=== PATIENT | female | born 1985 | race Caucasian/White ===

== ENCOUNTER 2020-03-15 07:35 | Inpatient (IN) | payer MEDICAID, OTHER ==
[~2020-03-15] VITALS: Ht 162.6 cm; Wt 60.6 kg
[2020-03-15] MEDS ORDERED: LORazepam 2 MG/ML VIAL IM ONE (10:00)
[2020-03-15] MEDS ORDERED: DiphenhydrAMINE HCL 50 MG/ML VIAL IM ONE (10:00)
[2020-03-15] MEDS ORDERED: HALOPERIDOL LACTATE 5 MG/ML VIAL IM ONE (10:00)
[2020-03-15] MEDS ORDERED: ZOLPIDEM TARTRATE 10 MG TABLET PO PRN (12:15)
[2020-03-15 12:19] LABS: ANION GAP 3 mmol/L (8-16); CALCIUM, TOTAL 9.4 mg/dL (8.8-10.5); CARBON DIOXIDE 32 mmol/L (22-29); CHLORIDE 103 mmol/L (98-107); CREATININE 0.82 mg/dL (0.60-1.30); GLOMERULAR FILTR. RATE CALC > 60 mL/min (>60); GLUCOSE,RANDOM 79 mg/dL (70-110); POTASSIUM 3.5 mmol/L (3.5-5.1); SODIUM SERUM 138 mmol/L (136-145); UREA NITROGEN, BLOOD 6 mg/dL (7-18)
[2020-03-15 12:24] LABS: ALANINE AMINOTRANSFERASE 24 U/L (12-78); ALBUMIN 3.9 g/dL (3.4-5.0); ALKALINE PHOSPHATASE 77 U/L (46-116); ASPARTATE AMINOTRANSFERASE 21 U/L (15-37); BILIRUBIN,TOTAL 0.4 mg/dL (0.1-1.0); HCG,QUANTITATIVE < 1 mIU/mL (0-6)
[2020-03-15 12:29] LABS: BASOPHILS % (AUTO) 0.5 % (0.0-2.0); EOSINOPHILS % (AUTO) 2.6 % (1.0-6.0); HEMATOCRIT 36.9 % (36-46); HEMOGLOBIN 12.4 g/dL (12.0-16.0); LYMPHOCYTES # (AUTO) 2.2 K/uL (1.0-4.8); LYMPHOCYTES % (AUTO) 34.8 % (22.0-44.0); MEAN CORPUSCULAR HEMOGLOBIN 28.3 pg (26.0-34.0); MEAN CORPUSCULAR HGB CONC 33.6 G/dL (31.0-37.0); MEAN CORPUSCULAR VOLUME 84 fL (80-100); MONOCYTES # (AUTO) 0.6 K/uL (0.1-1.0); MONOCYTES % (AUTO) 9.8 % (2.0-9.0); NEUTROPHILS # (AUTO) 3.2 K/uL (1.8-7.7); NEUTROPHILS % (AUTO) 52.3 % (40.0-70.0); PLATELET COUNT (AUTO) 205 K/uL (150-450); RED BLOOD CELL COUNT(AUTO) 4.38 MIL/uL (4.00-5.20); RED CELL DISTRIBUTION WIDTH 13.8 % (11.5-14.5)
[2020-03-15 18:37] VITALS: BP 122/79
[2020-03-16 04:43] VITALS: BP 118/62
[2020-03-16] MEDS ORDERED: CloNIDine HCL 0.1 MG TABLET PO PRN (08:00)
[2020-03-16] MEDS ORDERED: LOPERAMIDE HCL 2 MG CAPSULE PO PRN (08:00)
[2020-03-16] MEDS ORDERED: IBUPROFEN 400 MG TABLET PO PRN (08:00)
[2020-03-16] MEDS ORDERED: ONDANSETRON HCL 4 MG TABLET PO PRN (08:00)
[2020-03-16] MEDS ORDERED: MAG HYDROX/AL HYDROX/SIMETH ES 30 ML SUSPENSION UDCUP PO PRN (08:00)
[2020-03-16] MEDS ORDERED: MAGNESIUM HYDROXIDE SUSPENSION 30 ML UDCUP PO PRN (08:00)
[2020-03-16] MEDS ORDERED: NICOTINE 14 MG/24 HOUR PATCH TD PRN (08:00)
[2020-03-16] MEDS ORDERED: ACETAMINOPHEN 325 MG TABLET PO PRN (08:00)
[2020-03-16] MEDS ORDERED: PETROLATUM,WHITE 28 GM JELLY TP PRN (08:00)
[2020-03-16] MEDS ORDERED: GuaiFENesin/D-METHORPHAN [SUGAR-FREE] 200-20MG/10 ML SYRUP UDCUP PO PRN (08:00)
[2020-03-16] MEDS ORDERED: DOCUSATE SODIUM 100 MG CAPSULE PO PRN (08:00)
[2020-03-16 16:07] VITALS: BP 94/75
[2020-03-16] MEDS: LORazepam 2 MG TABLET PO PRN (16:49)
[2020-03-16] MEDS: HALOPERIDOL 5 MG TABLET PO PRN (16:49)
[2020-03-16] MEDS: OLANZapine 5 MG TABLET PO SCH (20:36)
[2020-03-17 00:27] VITALS: BP 101/71
[2020-03-17 08:00] VITALS: BP 124/80
[2020-03-17] MEDS ORDERED: DiphenhydrAMINE HCL 50 MG/ML VIAL IM ONE (12:15)
[2020-03-17] MEDS ORDERED: LORazepam 2 MG/ML VIAL IM ONE (12:15)
[2020-03-17] MEDS ORDERED: HALOPERIDOL LACTATE 5 MG/ML VIAL IM ONE (12:15)
[2020-03-17] MEDS: HALOPERIDOL 5 MG TABLET PO PRN (12:21)
[2020-03-17] MEDS: LORazepam 2 MG TABLET PO PRN (12:21)
[2020-03-17 16:07] VITALS: BP 105/70
[2020-03-17] MEDS: OLANZapine 5 MG TABLET PO SCH (20:57)
[2020-03-18 00:44] VITALS: BP 102/76
[2020-03-18 08:00] VITALS: BP 116/72
[2020-03-18] MEDS: LORazepam 2 MG TABLET PO PRN (10:01)
[2020-03-18] MEDS: OLANZapine 5 MG TABLET PO SCH (20:21)
[2020-03-19 00:41] VITALS: BP 111/68
[2020-03-19 08:16] VITALS: BP 117/64
[2020-03-19] MEDS: OLANZapine 5 MG TABLET PO SCH ×2 (09:41→20:25)
[2020-03-19] MEDS: LORazepam 2 MG TABLET PO PRN ×2 (10:07→15:57)
[2020-03-19] MEDS: ALBUTEROL SULFATE HFA 90 MCG/PUFF 8 GM INHALER IH PRN (15:57)
[2020-03-19 16:06] VITALS: BP 106/79
[2020-03-19] MEDS: HALOPERIDOL 5 MG TABLET PO PRN (18:01)
[2020-03-20 04:59] VITALS: BP 103/60
[2020-03-20] MEDS: LORazepam 2 MG TABLET PO PRN (08:55)
[2020-03-20] MEDS: OLANZapine 5 MG TABLET PO SCH ×2 (08:55→20:37)
[2020-03-20 16:12] VITALS: BP 116/66
[2020-03-20] MEDS ORDERED: LORazepam 2 MG/ML VIAL ONE (16:51)
[2020-03-20] MEDS ORDERED: HALOPERIDOL LACTATE 5 MG/ML VIAL ONE (16:51)
[2020-03-20] MEDS ORDERED: DiphenhydrAMINE HCL 50 MG/ML VIAL ONE (16:51)
[2020-03-20] MEDS ORDERED: LORazepam 2 MG/ML VIAL IM ONE (17:00)
[2020-03-20] MEDS ORDERED: HALOPERIDOL LACTATE 5 MG/ML VIAL IM ONE (17:00)
[2020-03-20] MEDS ORDERED: DiphenhydrAMINE HCL 50 MG/ML VIAL IM ONE (17:00)
[2020-03-21 03:50] VITALS: BP 110/73
[2020-03-21] MEDS: OLANZapine 5 MG TABLET PO SCH ×2 (09:16→20:22)
[2020-03-21] MEDS: LORazepam 2 MG TABLET PO PRN ×2 (09:16→16:26)
[2020-03-21] MEDS: HALOPERIDOL 5 MG TABLET PO PRN ×2 (09:16→16:26)
[2020-03-21] MEDS: ALBUTEROL SULFATE HFA 90 MCG/PUFF 8 GM INHALER IH PRN (16:27)
[2020-03-22 00:18] VITALS: BP 107/83
[2020-03-22] MEDS: LORazepam 2 MG TABLET PO PRN ×2 (09:39→14:20)
[2020-03-22] MEDS: OLANZapine 5 MG TABLET PO SCH ×2 (09:39→20:43)
[2020-03-22 16:20] VITALS: BP 100/62
[2020-03-23 00:55] VITALS: BP 101/65
[2020-03-23 08:00] VITALS: BP 112/74
[2020-03-23] MEDS ORDERED: FLUTICASONE PROPIONATE 50 MCG/SPRAY 16 GM NASAL SPRAY NASAL SCH (09:00)
[2020-03-23] MEDS ORDERED: OLANZapine 5 MG TABLET PO SCH (09:00)
[2020-03-23] MEDS: LORazepam 2 MG TABLET PO PRN (09:03)
[2020-03-23] MEDS ORDERED: OLANZapine 10 MG TABLET PO SCH (21:00)
[2020-03-23] MEDS ORDERED: OLAN5TAB2 PO (21:12)
[2020-03-24] MEDS ORDERED: LORA-1001 PO (11:21)
[2020-03-24] MEDS ORDERED: OLAN10TA22 PO (11:21)
[2020-03-24] MEDS ORDERED: FLUT15.812 NASAL (11:21)
[2020-03-24] MEDS ORDERED: ZOLP10TA8 PO (11:21)
[2020-03-24] MEDS ORDERED: HALO5TAB23 PO (11:21)
[2020-03-24] MEDS ORDERED: ALBU90AE IH (11:21)
[2020-03-24] MEDS ORDERED: ACET-784 PO (13:31)
== END 2020-03-23 16:30 | disposition short-term general hospital (02) | DRG 885 ==
LOC: EMS 07:40 → B3A 12:06 → UNDOADMIN 16:06 → B3A 16:06
DX: F25.1 Schizoaffective disorder, depressive type (principal); F29 Unspecified psychosis not due to a substance or known physiological condition; G44.209 Tension-type headache, unspecified, not intractable; K21.9 Gastro-esophageal reflux disease without esophagitis; R10.13 Epigastric pain; I95.9 Hypotension, unspecified; R21 Rash and other nonspecific skin eruption; Z59.0 Homelessness
CPT/HCPCS: G0480; J1200; J1630; J2060; J3535

== ENCOUNTER 2020-03-24 13:35 | Inpatient (IN) | payer MEDICAID ==
[~2020-03-24] VITALS: Ht 177.8 cm; Wt 64.0 kg
[~2020-03-24 13:35] MED LIST: ACET-784 PO; ALBU90AE IH; FLUT15.812 NASAL; HALO5TAB23 PO; LORA-1001 PO; OLAN10TA22 PO; OLAN5TAB2 PO; ZOLP10TA8 PO
[2020-03-24] MEDS ORDERED: HALOPERIDOL 5 MG TABLET PO PRN (14:15)
[2020-03-24 17:54] VITALS: BP 125/87
[2020-03-24] MEDS: OLANZapine 10 MG RAPDIS TABLET PO SCH (20:14)
[2020-03-24] MEDS: ZOLPIDEM TARTRATE 10 MG TABLET PO PRN (20:15)
[2020-03-25 03:46] VITALS: BP 120/84
[2020-03-25] MEDS ORDERED: [UNRECOGNIZED DRUG - OTHER] IH PRN (07:30)
[2020-03-25] MEDS ORDERED: CloNIDine HCL 0.1 MG TABLET PO PRN (07:30)
[2020-03-25] MEDS ORDERED: ACETAMINOPHEN 325 MG TABLET PO PRN (07:30)
[2020-03-25] MEDS ORDERED: MAG HYDROX/AL HYDROX/SIMETH ES 30 ML SUSPENSION UDCUP PO PRN (07:30)
[2020-03-25] MEDS ORDERED: DOCUSATE SODIUM 100 MG CAPSULE PO PRN (07:30)
[2020-03-25] MEDS ORDERED: NICOTINE 14 MG/24 HOUR PATCH TD PRN (07:30)
[2020-03-25] MEDS ORDERED: MAGNESIUM HYDROXIDE SUSPENSION 30 ML UDCUP PO PRN (07:30)
[2020-03-25] MEDS ORDERED: ONDANSETRON HCL 4 MG TABLET PO PRN (07:30)
[2020-03-25] MEDS ORDERED: GuaiFENesin/D-METHORPHAN [SUGAR-FREE] 200-20MG/10 ML SYRUP UDCUP PO PRN (07:30)
[2020-03-25] MEDS ORDERED: PETROLATUM,WHITE 28 GM JELLY TP PRN (07:30)
[2020-03-25] MEDS ORDERED: IBUPROFEN 400 MG TABLET PO PRN (07:30)
[2020-03-25] MEDS ORDERED: LOPERAMIDE HCL 2 MG CAPSULE PO PRN (07:30)
[2020-03-25 08:07] VITALS: BP 122/81
[2020-03-25] MEDS: OLANZapine 5 MG TABLET PO SCH (08:16)
[2020-03-25] MEDS: LORazepam 2 MG TABLET PO PRN (10:13)
[2020-03-25] MEDS: FLUTICASONE PROPIONATE 50 MCG/SPRAY 16 GM NASAL SPRAY NASAL SCH ×2 (12:15→16:28)
[2020-03-25 16:06] VITALS: BP 101/62
[2020-03-25] MEDS: OLANZapine 10 MG RAPDIS TABLET PO SCH (20:12)
[2020-03-25] MEDS: ALBUTEROL SULFATE HFA 90 MCG/PUFF 8 GM INHALER IH PRN (20:12)
[2020-03-25] MEDS: ZOLPIDEM TARTRATE 10 MG TABLET PO PRN (20:13)
[2020-03-26 04:24] VITALS: BP 119/85
[2020-03-26 08:19] VITALS: BP 104/72
[2020-03-26] MEDS: LORazepam 2 MG TABLET PO PRN (08:53)
[2020-03-26] MEDS: OLANZapine 5 MG TABLET PO SCH (08:53)
[2020-03-26] MEDS: FLUTICASONE PROPIONATE 50 MCG/SPRAY 16 GM NASAL SPRAY NASAL SCH ×2 (08:54→16:55)
[2020-03-26 16:05] VITALS: BP 100/66
[2020-03-26] MEDS: ALBUTEROL SULFATE HFA 90 MCG/PUFF 8 GM INHALER IH PRN (17:00)
[2020-03-26] MEDS: OLANZapine 10 MG RAPDIS TABLET PO SCH (20:12)
[2020-03-27 00:25] VITALS: BP 116/72
[2020-03-27] MEDS: LORazepam 2 MG TABLET PO PRN (08:42)
[2020-03-27] MEDS: OLANZapine 5 MG TABLET PO SCH (08:42)
[2020-03-27] MEDS: FLUTICASONE PROPIONATE 50 MCG/SPRAY 16 GM NASAL SPRAY NASAL SCH (08:42)
[2020-03-27] MEDS ORDERED: OLAN10TA6 PO (12:35)
== END 2020-03-27 14:32 | disposition home or self-care (01) | DRG 885 ==
LOC: B3A 18:20
DX: F25.1 Schizoaffective disorder, depressive type (principal); J45.909 Unspecified asthma, uncomplicated; F19.10 Other psychoactive substance abuse, uncomplicated; Z20.828 Contact with and (suspected) exposure to other viral communicable diseases
CPT/HCPCS: 87081; J3535; Z7610

== ENCOUNTER 2020-04-07 18:27 | Inpatient (IN) | payer MEDICAID, OTHER ==
[~2020-04-07] VITALS: Ht 180.3 cm; Wt 60.6 kg
[~2020-04-07 18:27] MED LIST changes: -ACET-784 PO; -ALBU90AE IH; -HALO5TAB23 PO; -LORA-1001 PO; -OLAN10TA22 PO; +OLAN10TA6 PO; -ZOLP10TA8 PO
[2020-04-07] MEDS ORDERED: LORazepam 2 MG TABLET PO ONE (19:30)
[2020-04-07] MEDS ORDERED: HALOPERIDOL 5 MG TABLET PO ONE (19:30)
[2020-04-08 01:10] VITALS: BP 104/74
[2020-04-08] MEDS ORDERED: PNEUMOCOCCAL VACCINE POLYVALENT 0.5 ML VIAL [PPSV23] IM ONE (04:30)
[2020-04-08 08:25] VITALS: BP 114/69
[2020-04-08] MEDS ORDERED: GuaiFENesin/D-METHORPHAN [SUGAR-FREE] 200-20MG/10 ML SYRUP UDCUP PO PRN (08:30)
[2020-04-08] MEDS ORDERED: MAGNESIUM HYDROXIDE SUSPENSION 30 ML UDCUP PO PRN (08:30)
[2020-04-08] MEDS ORDERED: CloNIDine HCL 0.1 MG TABLET PO PRN (08:30)
[2020-04-08] MEDS ORDERED: DOCUSATE SODIUM 100 MG CAPSULE PO PRN (08:30)
[2020-04-08] MEDS ORDERED: PETROLATUM,WHITE 28 GM JELLY TP PRN (08:30)
[2020-04-08] MEDS ORDERED: IBUPROFEN 400 MG TABLET PO PRN (08:30)
[2020-04-08] MEDS ORDERED: MAG HYDROX/AL HYDROX/SIMETH ES 30 ML SUSPENSION UDCUP PO PRN (08:30)
[2020-04-08] MEDS ORDERED: ALBUTEROL SULFATE HFA 90 MCG/PUFF 8 GM INHALER IH PRN (08:30)
[2020-04-08] MEDS ORDERED: LOPERAMIDE HCL 2 MG CAPSULE PO PRN (08:30)
[2020-04-08] MEDS ORDERED: ACETAMINOPHEN 325 MG TABLET PO PRN (08:30)
[2020-04-08] MEDS ORDERED: ONDANSETRON HCL 4 MG TABLET PO PRN (08:30)
[2020-04-08] MEDS: BACITRACIN 28 GM OINTMENT TP SCH ×2 (08:55→16:54)
[2020-04-08] MEDS: FLUTICASONE PROPIONATE 50 MCG/SPRAY 16 GM NASAL SPRAY NASAL SCH ×3 (08:56→16:54)
[2020-04-08] MEDS: LORazepam 2 MG TABLET PO PRN ×2 (10:42→16:56)
[2020-04-08] MEDS ORDERED: SUMAtriptan SUCCINATE 25 MG TABLET PO PRN (11:00)
[2020-04-08 16:05] VITALS: BP 118/72
[2020-04-08] MEDS: OLANZapine 10 MG RAPDIS TABLET PO SCH (20:24)
[2020-04-09 03:38] VITALS: BP 108/61
[2020-04-09 08:15] VITALS: BP 102/59
[2020-04-09] MEDS: FLUTICASONE PROPIONATE 50 MCG/SPRAY 16 GM NASAL SPRAY NASAL SCH ×2 (08:58→16:50)
[2020-04-09] MEDS: BACITRACIN 28 GM OINTMENT TP SCH ×2 (08:58→16:50)
[2020-04-09] MEDS: OLANZapine 5 MG TABLET PO SCH (08:59)
[2020-04-09 16:32] VITALS: BP 108/64
[2020-04-09] MEDS: OLANZapine 10 MG RAPDIS TABLET PO SCH (20:17)
[2020-04-10 06:20] VITALS: BP 105/60
[2020-04-10 08:16] VITALS: BP 114/59
[2020-04-10] MEDS: BACITRACIN 28 GM OINTMENT TP SCH ×2 (08:34→19:12)
[2020-04-10] MEDS: FLUTICASONE PROPIONATE 50 MCG/SPRAY 16 GM NASAL SPRAY NASAL SCH ×2 (08:34→19:12)
[2020-04-10] MEDS: OLANZapine 5 MG TABLET PO SCH (08:35)
[2020-04-10] MEDS: LORazepam 2 MG TABLET PO PRN (13:50)
[2020-04-10 16:08] VITALS: BP 118/79
[2020-04-10] MEDS: OLANZapine 10 MG RAPDIS TABLET PO SCH (20:38)
[2020-04-11 00:25] VITALS: BP 114/73
[2020-04-11] MEDS: OLANZapine 5 MG TABLET PO SCH (09:45)
[2020-04-11] MEDS: FLUTICASONE PROPIONATE 50 MCG/SPRAY 16 GM NASAL SPRAY NASAL SCH ×2 (09:45→16:27)
[2020-04-11] MEDS: BACITRACIN 28 GM OINTMENT TP SCH ×2 (09:47→16:27)
[2020-04-11 09:50] VITALS: BP 116/84
[2020-04-11 16:48] VITALS: BP 119/82
[2020-04-11] MEDS: OLANZapine 10 MG RAPDIS TABLET PO SCH (20:30)
[2020-04-11] MEDS: ZOLPIDEM TARTRATE 10 MG TABLET PO PRN (20:30)
[2020-04-11] MEDS ORDERED: DIVALPROEX SODIUM 500 MG DR TABLET PO SCH (21:00)
[2020-04-12 03:57] VITALS: BP 105/62
[2020-04-12] MEDS: FLUTICASONE PROPIONATE 50 MCG/SPRAY 16 GM NASAL SPRAY NASAL SCH ×2 (08:58→16:03)
[2020-04-12] MEDS: BACITRACIN 28 GM OINTMENT TP SCH ×2 (08:58→16:03)
[2020-04-12] MEDS: OLANZapine 5 MG TABLET PO SCH (08:58)
[2020-04-12] MEDS: VALPROIC ACID 250 MG/5 ML SYRUP UDCUP PO SCH ×2 (09:34→20:06)
[2020-04-12] MEDS: OLANZapine 10 MG RAPDIS TABLET PO SCH (20:06)
[2020-04-13 06:23] VITALS: BP 106/58
[2020-04-13 08:25] VITALS: BP 112/73
[2020-04-13] MEDS: BACITRACIN 28 GM OINTMENT TP SCH ×2 (09:24→16:15)
[2020-04-13] MEDS: LORazepam 2 MG TABLET PO PRN ×2 (09:24→16:15)
[2020-04-13] MEDS: FLUTICASONE PROPIONATE 50 MCG/SPRAY 16 GM NASAL SPRAY NASAL SCH ×2 (09:24→16:15)
[2020-04-13] MEDS: OLANZapine 5 MG TABLET PO SCH (09:24)
[2020-04-13] MEDS: VALPROIC ACID 250 MG/5 ML SYRUP UDCUP PO SCH ×2 (09:25→21:27)
[2020-04-13] MEDS: QUEtiapine FUMARATE 100 MG TABLET PO PRN (16:15)
[2020-04-13] MEDS: OLANZapine 10 MG RAPDIS TABLET PO SCH (21:26)
[2020-04-13] MEDS: ZOLPIDEM TARTRATE 10 MG TABLET PO PRN (21:27)
[2020-04-14 01:07] VITALS: BP 105/76
[2020-04-14] MEDS: OLANZapine 5 MG TABLET PO SCH (08:39)
[2020-04-14] MEDS: BACITRACIN 28 GM OINTMENT TP SCH ×2 (08:39→17:18)
[2020-04-14] MEDS: FLUTICASONE PROPIONATE 50 MCG/SPRAY 16 GM NASAL SPRAY NASAL SCH ×2 (08:39→17:18)
[2020-04-14] MEDS: VALPROIC ACID 250 MG/5 ML SYRUP UDCUP PO SCH ×2 (08:40→21:03)
[2020-04-14] MEDS: LORazepam 2 MG TABLET PO PRN ×2 (11:00→20:34)
[2020-04-14 16:17] VITALS: BP 104/64
[2020-04-14] MEDS: OLANZapine 10 MG RAPDIS TABLET PO SCH (21:03)
[2020-04-15 02:17] VITALS: BP 100/69
[2020-04-15] MEDS: FLUTICASONE PROPIONATE 50 MCG/SPRAY 16 GM NASAL SPRAY NASAL SCH ×2 (08:24→16:14)
[2020-04-15] MEDS: VALPROIC ACID 250 MG/5 ML SYRUP UDCUP PO SCH ×2 (08:24→20:05)
[2020-04-15] MEDS: BACITRACIN 28 GM OINTMENT TP SCH ×2 (08:24→16:14)
[2020-04-15] MEDS: OLANZapine 5 MG TABLET PO SCH (08:24)
[2020-04-15] MEDS: LORazepam 2 MG TABLET PO PRN ×2 (08:33→16:14)
[2020-04-15 16:14] VITALS: BP_SYST 105; BP_SYST 110; BP_DIAS 62; BP_DIAS 70
[2020-04-15] MEDS: OLANZapine 10 MG RAPDIS TABLET PO SCH (20:05)
[2020-04-15] MEDS: ZOLPIDEM TARTRATE 10 MG TABLET PO PRN (20:11)
[2020-04-16 01:21] VITALS: BP 101/74
[2020-04-16 08:13] VITALS: BP 102/76
[2020-04-16] MEDS: OLANZapine 5 MG TABLET PO SCH (08:56)
[2020-04-16] MEDS: FLUTICASONE PROPIONATE 50 MCG/SPRAY 16 GM NASAL SPRAY NASAL SCH ×2 (08:56→16:30)
[2020-04-16] MEDS: BACITRACIN 28 GM OINTMENT TP SCH ×2 (08:56→16:29)
[2020-04-16] MEDS: VALPROIC ACID 250 MG/5 ML SYRUP UDCUP PO SCH ×2 (08:56→20:14)
[2020-04-16] MEDS: LORazepam 2 MG TABLET PO PRN ×2 (09:10→18:39)
[2020-04-16 16:08] VITALS: BP 117/66
[2020-04-16] MEDS: OLANZapine 10 MG RAPDIS TABLET PO SCH (20:14)
[2020-04-17 06:26] VITALS: BP 112/74
[2020-04-17 08:13] VITALS: BP 112/69
[2020-04-17] MEDS: VALPROIC ACID 250 MG/5 ML SYRUP UDCUP PO SCH ×2 (08:13→20:01)
[2020-04-17] MEDS: BACITRACIN 28 GM OINTMENT TP SCH ×2 (08:14→16:14)
[2020-04-17] MEDS: OLANZapine 5 MG TABLET PO SCH (08:14)
[2020-04-17] MEDS: FLUTICASONE PROPIONATE 50 MCG/SPRAY 16 GM NASAL SPRAY NASAL SCH ×2 (08:16→16:14)
[2020-04-17] MEDS: HydrOXYzine PAMOATE 25 MG CAPSULE PO PRN (10:00)
[2020-04-17 16:27] VITALS: BP 106/60
[2020-04-17] MEDS: OLANZapine 10 MG RAPDIS TABLET PO SCH (20:01)
[2020-04-18 03:55] VITALS: BP 101/77
[2020-04-18] MEDS: OLANZapine 5 MG TABLET PO SCH (08:12)
[2020-04-18] MEDS: MULTIVITAMINS WITH MINERALS, THERAPEUTIC TABLET PO SCH (08:12)
[2020-04-18] MEDS: HydrOXYzine PAMOATE 25 MG CAPSULE PO PRN ×2 (08:12→16:28)
[2020-04-18] MEDS: VALPROIC ACID 250 MG/5 ML SYRUP UDCUP PO SCH ×2 (08:12→20:10)
[2020-04-18] MEDS: QUEtiapine FUMARATE 100 MG TABLET PO PRN (08:12)
[2020-04-18] MEDS: FLUTICASONE PROPIONATE 50 MCG/SPRAY 16 GM NASAL SPRAY NASAL SCH ×2 (08:13→16:48)
[2020-04-18] MEDS: BACITRACIN 28 GM OINTMENT TP SCH ×2 (08:13→16:48)
[2020-04-18 09:26] VITALS: BP 100/60
[2020-04-18 16:03] VITALS: BP 105/95
[2020-04-18] MEDS: OLANZapine 10 MG RAPDIS TABLET PO SCH (20:11)
[2020-04-19 03:58] VITALS: BP 107/67
[2020-04-19] MEDS: BACITRACIN 28 GM OINTMENT TP SCH ×2 (08:34→16:14)
[2020-04-19] MEDS: VALPROIC ACID 250 MG/5 ML SYRUP UDCUP PO SCH ×2 (08:35→20:09)
[2020-04-19] MEDS: OLANZapine 5 MG TABLET PO SCH (08:35)
[2020-04-19] MEDS: MULTIVITAMINS WITH MINERALS, THERAPEUTIC TABLET PO SCH (08:35)
[2020-04-19] MEDS: HydrOXYzine PAMOATE 25 MG CAPSULE PO PRN ×2 (08:35→17:40)
[2020-04-19] MEDS: FLUTICASONE PROPIONATE 50 MCG/SPRAY 16 GM NASAL SPRAY NASAL SCH ×2 (08:35→16:14)
[2020-04-19] MEDS: QUEtiapine FUMARATE 100 MG TABLET PO PRN (08:35)
[2020-04-19 16:12] VITALS: BP 108/70
[2020-04-19] MEDS: OLANZapine 10 MG RAPDIS TABLET PO SCH (20:08)
[2020-04-20 01:36] VITALS: BP 100/76
[2020-04-20 08:23] VITALS: BP 112/77
[2020-04-20] MEDS: FLUTICASONE PROPIONATE 50 MCG/SPRAY 16 GM NASAL SPRAY NASAL SCH ×2 (08:48→18:11)
[2020-04-20] MEDS: VALPROIC ACID 250 MG/5 ML SYRUP UDCUP PO SCH ×2 (08:48→20:42)
[2020-04-20] MEDS: MULTIVITAMINS WITH MINERALS, THERAPEUTIC TABLET PO SCH (08:48)
[2020-04-20] MEDS: OLANZapine 5 MG TABLET PO SCH (08:48)
[2020-04-20] MEDS: BACITRACIN 28 GM OINTMENT TP SCH ×2 (08:48→18:11)
[2020-04-20 16:10] VITALS: BP 102/72
[2020-04-20] MEDS: OLANZapine 10 MG RAPDIS TABLET PO SCH (20:42)
[2020-04-21 02:13] VITALS: BP 116/70
[2020-04-21] MEDS: VALPROIC ACID 250 MG/5 ML SYRUP UDCUP PO SCH ×2 (08:27→21:18)
[2020-04-21] MEDS: HydrOXYzine PAMOATE 25 MG CAPSULE PO PRN ×2 (08:28→17:41)
[2020-04-21] MEDS: QUEtiapine FUMARATE 100 MG TABLET PO PRN ×2 (08:28→17:41)
[2020-04-21] MEDS: MULTIVITAMINS WITH MINERALS, THERAPEUTIC TABLET PO SCH (08:28)
[2020-04-21] MEDS: OLANZapine 5 MG TABLET PO SCH (08:28)
[2020-04-21] MEDS: BACITRACIN 28 GM OINTMENT TP SCH ×2 (08:29→17:19)
[2020-04-21] MEDS: FLUTICASONE PROPIONATE 50 MCG/SPRAY 16 GM NASAL SPRAY NASAL SCH ×2 (08:29→17:19)
[2020-04-21 09:03] VITALS: BP 105/78
[2020-04-21] MEDS: NICOTINE 14 MG/24 HOUR PATCH TD PRN (10:32)
[2020-04-21 16:14] VITALS: BP 104/63
[2020-04-21] MEDS: OLANZapine 10 MG RAPDIS TABLET PO SCH (21:18)
[2020-04-22 04:10] VITALS: BP 102/77
[2020-04-22] MEDS: FLUTICASONE PROPIONATE 50 MCG/SPRAY 16 GM NASAL SPRAY NASAL SCH (08:20)
[2020-04-22] MEDS: BACITRACIN 28 GM OINTMENT TP SCH (08:20)
[2020-04-22] MEDS: OLANZapine 5 MG TABLET PO SCH (08:21)
[2020-04-22] MEDS: MULTIVITAMINS WITH MINERALS, THERAPEUTIC TABLET PO SCH (08:21)
[2020-04-22] MEDS: VALPROIC ACID 250 MG/5 ML SYRUP UDCUP PO SCH (08:21)
[2020-04-22] MEDS: NICOTINE 14 MG/24 HOUR PATCH TD PRN (08:21)
[2020-04-22] MEDS: HydrOXYzine PAMOATE 25 MG CAPSULE PO PRN (08:21)
[2020-04-22] MEDS: QUEtiapine FUMARATE 100 MG TABLET PO PRN (08:22)
[2020-04-22 08:27] VITALS: BP 116/68
[2020-04-22] MEDS ORDERED: VALP250S23 PO (11:40)
[2020-04-22] MEDS ORDERED: OLAN5TAB27 PO (11:40)
[2020-04-22] MEDS ORDERED: OLAN10TA22 PO (11:40)
== END 2020-04-22 14:30 | disposition home or self-care (01) | DRG 750 ==
LOC: EMS 18:32 → B3A 21:34
DX: F25.1 Schizoaffective disorder, depressive type (principal); F17.210 Nicotine dependence, cigarettes, uncomplicated; G43.909 Migraine, unspecified, not intractable, without status migrainosus; J45.909 Unspecified asthma, uncomplicated; F10.10 Alcohol abuse, uncomplicated; Z91.5 Personal history of self-harm; Z79.899 Other long term (current) drug therapy
CPT/HCPCS: 87081; Z7502; Z7610